=== PATIENT | female | born 1985 | race Native Hawaiian/Other Pacific Islander ===

== ENCOUNTER 2022-05-26 13:31 | Emergency (ER) | payer SELFPAY ==
[2022-05-26 13:37] VITALS: BP 151/102; PULSE 92; RESP 20; TEMP 36.6; O2SAT 99; BMI 31.0
--- NOTE | 2022-05-26 14:01 | CRLHL7_ITS ---
For Patients: As a result of the Cures Act, medical imaging exams and procedure reports are released immediately into your electronic medical record. You may view this report before your referring provider. If you have questions, please contact your health care provider. Indication: Injury Technique: A total of three views of the right elbow were acquired. Comparison: None Findings: Bones: Alignment is normal. No fractures or bone lesions. Joint spaces: Unremarkable. Soft tissues: Unremarkable. Impression: Normal examination Dictated by Henrique Meza MD @ 05/26/2022 2:44:29 PM (Electronically Signed)
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
== END 2022-05-26 15:27 | disposition home or self-care (01) ==
PROVIDERS: Emergency Provider Emergency Medicine Emergency Medical Services
DX: M25.521 Pain in right elbow (principal); M25.561 Pain in right knee
CPT/HCPCS: 73080; 99283; 99284